=== PATIENT | female | born 1985 | race Caucasian/White ===

== ENCOUNTER → 2020-07-08 11:39 | Outpatient (BNVA) | payer OTHER, SELFPAY | PROVIDERS: Family Provider Family Medicine; PCP Family Medicine; Visit Provider Family Medicine | DX: R13.10 Dysphagia, unspecified (principal) | CPT/HCPCS: 80053; 84443; 85025; 86141 ==

== ENCOUNTER 2020-07-16 08:15 | Outpatient (CLI) | payer OTHER, SELFPAY ==
--- NOTE | 2020-07-16 08:30 | FL_ITS ---
WS: [id number] ESOPHAGRAM WITH FLUOROSCOPY HISTORY: R13.10 - Dysphagia, unspecified COMPARISON: None available. FLUOROSCOPY TIME: 1.3 minutes. Elevator Starter radiograph: Not obtained. Esophagus and swallowing function: Very mild narrowing due to cricopharyngeal spasm at the C5-6 level . Spasm was only intermittently seen throughout the examination. No web or mucosal lesions. Patient s wallowed the barium tablet without difficulty. Gastroesophageal reflux: None. Hiatal hernia: Very small reducible. FL/FL barium swallow [id number] IMPRESSION: 1. Very mild cricopharyngeal spasm at the C5-6 level. Intermittently visualize d. 2. Very small reducible hiatal hernia.
== END 2020-07-16 08:16 | disposition home or self-care (01) ==
LOC: RADWPI 08:20
PROVIDERS: Visit Provider Family Medicine
DX: R13.10 Dysphagia, unspecified (principal); K44.9 Diaphragmatic hernia without obstruction or gangrene
CPT/HCPCS: 74220

== ENCOUNTER → 2020-08-16 13:54 | Outpatient (BNVA) | payer OTHER, SELFPAY | PROVIDERS: Visit Provider Surgery | DX: Z01.812 Encounter for preprocedural laboratory examination (principal); Z20.828 Contact with and (suspected) exposure to other viral communicable diseases | CPT/HCPCS: 87635 ==

== ENCOUNTER 2020-08-21 06:21 | Day surgery (SDC) | payer OTHER, SELFPAY ==
[2020-08-19 13:29] VITALS: BMI 37.8
--- NOTE | 2020-08-21 06:41 | W.PM.OPSUD ---
Surgery/Procedure H&P Update DATE OF PROCEDURE: August 21, 2020 DATE H&P PERFORMED: 07/28/20 H&P UPDATE INFORMATION: I have reviewed H&P completed within last 30 days, I have examined patient prior to procedure and No changes to prior documentation PREOP DIAGNOSIS: Difficulty in swallowing PRIMARY INDICATION FOR PROCEDURE: The same PLANNED PROCEDURE: Operation Date: 08/21/20 07:30 Proposed Procedures p EGD 62495 R13.10(Not Applicable) - Ramon Herrera MD
[2020-08-21 06:43] VITALS: BP 123/89; PULSE 63; RESP 18; TEMP 36.6; O2SAT 98
[2020-08-21] MEDS: sodium chloride 0.9% 1,000 ML 30 ML IV (06:52)
--- NOTE | 2020-08-21 07:56 | ANES.PREANE2 ---
Pre-Anesthetic Assessment Pre-Anesthetic Assessment: Height/Weight: Height 1.55 m Weight 90.718 kg Temp Pulse Resp BP Pulse Ox 97.9 F 63 18 123/89 98 08/21/20 06:43 08/21/20 06:43 08/21/20 06:43 08/21/20 06:43 08/21/20 06:43 Preop Diagnosis: Difficulty in swallowing Proposed Procedure: Operation Date: 08/21/20 07:30 Proposed Procedures p EGD 45624 R13.10(Not Applicable) - Ramon Herrera MD Familial anesthetic complications: None Was Beta Dale taken within 24 hours: N/A Last intake: Intake Last Liquid Date 08/20/20 Last Liquid Time 22:00 Last Solid Date 08/20/20 Last Solid Time 18:00 Social: Social History: No alcohol and No tobacco Comment: former smoker Exam: Pre-Anes Outpt Exam: alert, oriented x 3, clear to auscultation bilaterally and regular rate & rhythm Airway: Cervical ROM: WNL MP: 3 Dentition: Full Anesthetic Plan: ASA status: 2 Anesthesia: MAC Risk of > 500 ml blood loss (7ml/kg in children): No Meds/Allergies Current Medications: Current Medications Generic Name Dose Route Start Last Admin Trade Name Freq PRN Reason Stop Dose Admin Sodium Chloride 1,000 mls @ 30 ml s/hr 08/21/20 06:30 08/21/20 06:52 Sodium Chloride 0.9% IV 08/22/20 06:29 30 mls/hr .Q24H DAVID Administration PFSH Anesthesia PFSH: Family History Other Hypertension Denies family history of Anesthesia complication Bleeding disorder Social History Smoking and tobacco status: former smoker Alcohol intake: never Data Anesthesia Cardiac Studies: No Data to Display
[2020-08-21 08:06] VITALS: BP 113/71; PULSE 84; RESP 16; TEMP 36.5; O2SAT 97
--- NOTE | 2020-08-21 08:08 | ANE.PACU2 ---
Inpatient post-anesthesia follow up: Airway intact: Yes Vital signs: Temperature 97.7 F Pulse Rate 84 Respiratory Rate 16 Blood Pressure 113/71 Pulse Oximetry 97 Oxygen Delivery Me thod Room Air Oxygen Flow Rate Fraction of Inspir ed Oxygen Hydration adequate: Yes Nausea and vomiting: No Pain level: 1 Mental status: Baseline
[2020-08-21 08:20] VITALS: BP 129/89; PULSE 70; RESP 18; O2SAT 100
[2020-08-22 08:56] LABS: H. Pylori / CLO Test Negative
--- NOTE | 2020-08-24 07:01 | P.HP_ITS ---
Same Day Surgery H&P Indication for Procedure/HPI DATE OF PROCEDURE: August 21, 2020 CHIEF COMPLAINT/INDICATIONFOR SURGICAL PROCEDURE: Difficulty in swalloing PREOP DIAGNOSIS: Difficulty in swallowing PLANNED PROCEDRUE: Operation Date: 08/21/20 07:30 Proposed Procedures p EGD 74336 R13.10(Not Applicable) - Ramon Herrera MD This is a pleasant 35 years old female patient presents to my practice with history of dysphagia and chest tightness patient has been getting progressive difficulty in swallowing for solid food. She gets the feeling of something stuck in her throat. Has been getting worse over the past year. Patient reports no history of neck surgeries or radiation or history of connective tissue disorders when I asked her. She denies history of hemoptysis hematemesis. Also she reports no dentures and no weight loss. Never undergone work-up for difficulty in swallowing before. Except for an esophagogram that showed: Esophagus and swallowing function: Very mild narrowing due to cricopharyngeal spasm at the C5-6 level. Spasm was only intermittently seen throughout the examination. No web or mucosal lesions. Patient swallowed the barium tablet without difficulty. Gastroesophageal reflux: None. Hiatal hernia: Very small reducible. Intreim History Patient comes today to proceed with Diagnostic EGD and reports no change in History. ROS All systems have been reviewed negative except as per the above or per problem list Medications/Allergies* Allergies/Adverse Reactions Allergy/AdvReac Type Severity Reaction Status Date / Time latex Allergy RASH AND Verified 08/24/20 07:03 SWELLING Pertinent History/Comorbid Conditions* Family History (Updated 07/18/20 @ 14:27 by Alexsandra Ward RN) Hypertension Denies family history of Anesthesia complication Bleeding disorder Social History Smoking and tobacco status: former smoker Alcohol intake: never Pertinent Exam Findings alert, oriented x 3, clear to auscultation bilaterally, regular rate & rhythm and procedure specific exam findings (Abdominal examination nontender nondistended soft, obese) Recommendations Surgery/Procedure today (Esophagogastroduodenoscopy with possible biopsy) Coding Level of Care Code Acute Certified Surgical First Assistant for [place]
== END 2020-08-21 08:39 | disposition home or self-care (01) ==
PROVIDERS: Visit Provider Surgery
PROC: 0DJ08ZZ Inspection of Upper Intestinal Tract, Via Natural or Artificial Opening Endoscopic (ICD-10-PCS; CPT 43235; principal; 2020-08-21 07:30)
DX: R13.10 Dysphagia, unspecified (principal); K21.9 Gastro-esophageal reflux disease without esophagitis; K44.9 Diaphragmatic hernia without obstruction or gangrene; K29.70 Gastritis, unspecified, without bleeding; Z87.891 Personal history of nicotine dependence
CPT/HCPCS: 12345; 43239; 87077; J7030

== ENCOUNTER 2020-09-16 11:03 | Outpatient (CLI) | payer OTHER, SELFPAY ==
--- NOTE | 2020-09-16 11:00 | FL_ITS ---
WS: [id number] MODIFIED BARIUM SWALLOW HISTORY: R13.10 - Dysphagia, unspecified FLUOROSCOPY TIME: 2.0 minutes. Modified barium swallow was performed by the speech pathologist. Fluoroscopy was provided with the pa tient in a lateral projection. Multiple food consistencies were provided. Several food consistencies collected in the vallecula bilaterally during the examination. No aspirati on or penetration. The collecting food in the vallecula cleared with additional swallowing and liquid s. Patient swallowed the barium tablet with no difficulty. FL/FL barium swallow modifd [id number] IMPRESSION: Minimal collection of food products and liquids in the vallecula with no aspira tion. Please see speech therapist report also for recommendations.
== END 2020-09-16 11:04 | disposition home or self-care (01) ==
LOC: RAD 11:09
PROVIDERS: PCP Nurse Practitioner Family; Visit Provider Surgery
DX: R13.10 Dysphagia, unspecified (principal)
CPT/HCPCS: 74230; 92611

== ENCOUNTER → 2020-12-24 11:20 | Outpatient (BNVA) | payer OTHER, SELFPAY | PROVIDERS: PCP Nurse Practitioner Family; Visit Provider Nurse Practitioner Family | DX: I10 Essential (primary) hypertension (principal); L30.9 Dermatitis, unspecified; Z79.899 Other long term (current) drug therapy | CPT/HCPCS: 81003 ==

== ENCOUNTER → 2021-03-24 11:53 | Outpatient (BNVA) | payer OTHER, SELFPAY | PROVIDERS: PCP Nurse Practitioner Family; Visit Provider Nurse Practitioner Family | DX: Z01.419 Encounter for gynecological examination (general) (routine) without abnormal findings (principal) | CPT/HCPCS: 88175 ==

== ENCOUNTER 2021-04-15 13:17 | Outpatient (CLI) | payer OTHER, SELFPAY ==
--- NOTE | 2021-04-15 13:30 | MM_ITS ---
WS: [id number] DIAGNOSTIC BILATERAL DIGITAL MAMMOGRAM WITH CAD LEFT breast ultrasound, limited HISTORY: N63.20 - Unspecified lump in the left breast, COMPARISON: None available. TECHNIQUE: Bilateral craniocaudad, mediolateral oblique, and mediolateral views are submitted. Spot c ompression LEFT CC. Computer aided detection utilized. Breast composition: There are scattered areas of fibroglandular density. Parenchyma marker is placed towards the LEFT axillary tail. No underlying mass identified or distortion. No suspicious mass or ca lcification within either breast. LEFT breast ultrasound, limited. Ultrasound is directed to the palpable area in the LEFT breast at 1:00. There is no mass or distortio n. No soft tissue abnormality. MM/[place] [id number] IMPRESSION: BI-RADS: 1-Negative FOLLOW UP: 1 Year Follow-up
--- NOTE | 2021-04-15 14:15 | US_ITS ---
WS: [id number] DIAGNOSTIC BILATERAL DIGITAL MAMMOGRAM WITH CAD LEFT breast ultrasound, limited HISTORY: N63.20 - Unspecified lump in the left breast, COMPARISON: None available. TECHNIQUE: Bilateral craniocaudad, mediolateral oblique, and mediolateral views are submitted. Spot c ompression LEFT CC. Computer aided detection utilized. Breast composition: There are scattered areas of fibroglandular density. Parenchyma marker is placed towards the LEFT axillary tail. No underlying mass identified or distortion. No suspicious mass or ca lcification within either breast. LEFT breast ultrasound, limited. Ultrasound is directed to the palpable area in the LEFT breast at 1:00. There is no mass or distortio n. No soft tissue abnormality. US/US breast LT limited* [id number] IMPRESSION: BI-RADS: 1-Negative FOLLOW UP: 1 Year Follow-up
== END 2021-04-15 13:18 | disposition home or self-care (01) ==
PROVIDERS: PCP Nurse Practitioner Family; Visit Provider Nurse Practitioner Family
DX: N63.21 Unspecified lump in the left breast, upper outer quadrant (principal)
CPT/HCPCS: 76642; 77066

== ENCOUNTER → 2021-06-23 00:01 | Outpatient (BNVA) | payer OTHER, SELFPAY | PROVIDERS: PCP Nurse Practitioner Family; Visit Provider Nurse Practitioner Family | DX: I10 Essential (primary) hypertension (principal) | CPT/HCPCS: 81003 ==

== ENCOUNTER 2023-06-15 11:35 | Outpatient (CLI) | payer OTHER, SELFPAY ==
--- NOTE | 2023-06-15 11:38 | XRR_ITS ---
PROCEDURE INFORMATION: Exam: XR Cervical Spine Exam date and time: 06/15/2023 11:57 AM Age: 38 years old Clinical indication: Radicular pain (radiculopathy); Cervical region; Additional info: M54.12 - radiculopathy, cervical region, please add flexion and extension views TECHNIQUE: Imaging protocol: Radiologic exam of the cervical spine. Views: 6 or more views. COMPARISON: XA FL barium swallow modifd [id number] 09/16/2020 12:59 PM FINDINGS: Bones/joints: Normal alignment. Disc heights are maintained. Right neural foramina are patent. Left neural foramina not as well demonstrated due to patient positioning. No fracture, subluxation or spondylolisthesis detected. Flexion and extension views demonstrates adequate range of motion without evidence of segmental instability. Soft tissues: No prevertebral soft tissue swelling. XR/XR cervical spine min 6V [id number] IMPRESSION: Limited assessment of the left neural foramina otherwise unremarkable cervical spine
--- NOTE | 2023-06-15 11:38 | XRR_ITS ---
PROCEDURE INFORMATION: Exam: XR Left Shoulder Exam date and time: 06/15/2023 11:57 AM Age: 38 years old Clinical indication: Pain; Shoulder; Left; Patient HX: Chronic radiculopathy, cervical region; Additional info: S46.912a - strain of unspecified muscle, fascia and tendo. . . TECHNIQUE: Imaging protocol: Radiologic exam of the left shoulder. Views: 2 or more views. COMPARISON: No relevant prior studies available. FINDINGS: Bones/joints: Osseous structures are unremarkable. Joint surfaces are preserved. There is no fracture, malalignment or underlying osseous lesion detected. Soft tissues: Normal. XR/XR shoulder LT min 2V* [id number] IMPRESSION: Normal left shoulder
== END 2023-06-15 11:36 | disposition home or self-care (01) ==
LOC: RAD 11:36
PROVIDERS: PCP Family Medicine; Visit Provider Nurse Practitioner Family
DX: S46.912A Strain of unspecified muscle, fascia and tendon at shoulder and upper arm level, left arm, initial encounter (principal); X58.XXXA Exposure to other specified factors, initial encounter; M54.12 Radiculopathy, cervical region
CPT/HCPCS: 72052; 73030

== ENCOUNTER → 2023-06-16 08:24 | Outpatient (BNVA) | payer OTHER, SELFPAY | PROVIDERS: PCP Family Medicine; Visit Provider Nurse Practitioner Family | DX: Z79.899 Other long term (current) drug therapy (principal); Z13.6 Encounter for screening for cardiovascular disorders; E55.9 Vitamin D deficiency, unspecified; E78.5 Hyperlipidemia, unspecified; I10 Essential (primary) hypertension | CPT/HCPCS: 80053; 80061; 81003; 82306; 83036; 84439; 84443; 84481; 85025 ==

== ENCOUNTER 2023-06-24 06:00 | Outpatient (RCR) | payer OTHER, SELFPAY | END 2023-07-15 23:59 | disposition home or self-care (01) | LOC: WPT 06:00 | PROVIDERS: PCP Family Medicine; Visit Provider Nurse Practitioner Family | DX: M54.12 Radiculopathy, cervical region (principal) | CPT/HCPCS: 97110; 97112; 97140; 97161; 97530 ==

== ENCOUNTER 2023-07-16 06:00 | Outpatient (RCR) | payer OTHER, SELFPAY | END 2023-08-15 23:59 | disposition home or self-care (01) | LOC: WPT 06:00 | PROVIDERS: PCP Nurse Practitioner Family; Visit Provider Nurse Practitioner Family | DX: M54.12 Radiculopathy, cervical region (principal) | CPT/HCPCS: 97110; 97112; 97140; 97530 ==

== ENCOUNTER 2023-07-21 09:09 | Outpatient (CLI) | payer OTHER, SELFPAY ==
--- NOTE | 2023-07-21 09:12 | MM_ITS ---
WS: [id number] SCREENING DIGITAL TOMOSYNTHESIS MAMMOGRAM WITH CAD HISTORY: SCREENING COMPARISON: 04/15/2021 Bilateral CC and MLO with tomosynthesis views submitted. Synthetic mammography reviewed. Computer aid ed detection analyzed. Breast composition: There are scattered areas of fibroglandular density. No suspicious masses, microc alcifications or architectural distortion. There are few benign scattered calcifications within each breast. IMPRESSION: MM/[place] [id number] BI-RADS: 2-Benign FOLLOW UP: 1 Year Follow-up
== END 2023-07-21 09:10 | disposition home or self-care (01) ==
LOC: MOBLMAM 09:25
PROVIDERS: PCP Nurse Practitioner Family; Visit Provider Nurse Practitioner Family
DX: Z12.31 Encounter for screening mammogram for malignant neoplasm of breast (principal)
CPT/HCPCS: 77063; 77067

== ENCOUNTER → 2023-11-03 08:34 | Outpatient (BNVA) | payer OTHER, SELFPAY | PROVIDERS: PCP Nurse Practitioner Family; Visit Provider Nurse Practitioner Family | DX: R35.0 Frequency of micturition (principal); N32.81 Overactive bladder; R63.1 Polydipsia; E55.9 Vitamin D deficiency, unspecified; Z68.41 Body mass index [BMI] 40.0-44.9, adult; R31.9 Hematuria, unspecified | CPT/HCPCS: 80053; 81003; 82306; 83036; 85025; 87086 ==

== ENCOUNTER 2024-04-28 10:15 | Outpatient (CLI) | payer OTHER, SELFPAY ==
--- NOTE | 2024-04-28 10:15 | US_ITS ---
WS: [id number] ULTRASOUND SOFT TISSUES RIGHT chest wall HISTORY: D17.21 - Benign lipomatous neoplasm of skin and subcutane... COMPARISON: None available. TECHNIQUE: 2-D and color Doppler imaging is submitted. Patient directed to the area of concern. No mass or displacement soft tissues noted. No solid or cyst ic mass. No shadowing. US/US soft tissue/extremity [id number] IMPRESSION: Negative soft tissue ultrasound RIGHT thorax.
== END 2024-04-28 10:21 | disposition home or self-care (01) ==
PROVIDERS: PCP Nurse Practitioner Family; Visit Provider Nurse Practitioner Family
DX: D17.21 Benign lipomatous neoplasm of skin and subcutaneous tissue of right arm (principal)
CPT/HCPCS: 76882

== ENCOUNTER 2024-08-31 08:56 | Outpatient (CLI) | payer OTHER, SELFPAY ==
--- NOTE | 2024-08-31 09:00 | MM_ITS ---
WS: [id number] SCREENING DIGITAL TOMOSYNTHESIS MAMMOGRAM WITH CAD HISTORY: SCREENING COMPARISON: 07/21/2023, 04/15/2021 Bilateral CC and MLO with tomosynthesis views submitted. Synthetic mammography reviewed. Computer aid ed detection analyzed. Breast composition: The breasts are almost entirely fatty. No suspicious masses, microcalcifications or architectural distortion. There are a few benign scattered calcifications. MM/MM scr BI tomosynthesis [id number] IMPRESSION: BI-RADS: 2 - Benign. FOLLOW UP: 1 Year Follow-up
== END 2024-08-31 08:57 | disposition home or self-care (01) ==
LOC: MOBLMAM 08:58
PROVIDERS: PCP Nurse Practitioner Family; Visit Provider Nurse Practitioner Family
DX: Z12.31 Encounter for screening mammogram for malignant neoplasm of breast (principal); R92.313 Mammographic fatty tissue density, bilateral breasts; R92.1 Mammographic calcification found on diagnostic imaging of breast
CPT/HCPCS: 77063; 77067

== ENCOUNTER → 2024-09-27 10:50 | Outpatient (BNVA) | payer OTHER, SELFPAY | PROVIDERS: PCP Nurse Practitioner Family; Visit Provider Nurse Practitioner Family | DX: I10 Essential (primary) hypertension (principal); Z13.6 Encounter for screening for cardiovascular disorders; E78.5 Hyperlipidemia, unspecified; E55.9 Vitamin D deficiency, unspecified; E28.319 Asymptomatic premature menopause; R23.2 Flushing | CPT/HCPCS: 80053; 80061; 81003; 82306; 82670; 83001; 83002; 83036; 84144; 84443; 85025 ==

== ENCOUNTER → 2024-10-24 08:09 | Outpatient (BNVA) | payer OTHER, SELFPAY | PROVIDERS: PCP Nurse Practitioner Family; Visit Provider Nurse Practitioner Family | DX: R39.9 Unspecified symptoms and signs involving the genitourinary system (principal) | CPT/HCPCS: 81003 ==

== ENCOUNTER → 2025-01-26 10:25 | Outpatient (BNVA) | payer OTHER, SELFPAY | PROVIDERS: PCP Nurse Practitioner Family; Visit Provider Nurse Practitioner Family | DX: I10 Essential (primary) hypertension (principal); E55.9 Vitamin D deficiency, unspecified; K92.1 Melena; K64.8 Other hemorrhoids | CPT/HCPCS: 80053; 80061; 81003; 82306; 83036; 84443; 85025 ==